=== PATIENT | female | born 1930 | race Asian ===

== ENCOUNTER 2016-11-13 21:48 | Inpatient (IN) | payer OTHER, MEDICAID ==
[~2016-11-13] VITALS: Ht 152.4 cm; Wt 66.0 kg
--- NOTE | 2016-11-13 22:25 | NUR ---
PT IN ED FOR NOT FEELING WELL PER FAMILY. PT RECENTLY TRAVELED BACK FROM [facility] YESTERDAY; FAMILY STS PT WAS SEEN BY DOCTOR IN [facility] AND WAS TOLD PT WAS DEHYDRATED AND NEEDED TO DRINK "MORE WATER AND GATORADE." PER FAMILY PT IS INTERMITTENTLY "DISORIENTED" X2 DAYS. PT IS ABLE TO FOLLOW COMMANDS,PT IS HARD OF HEARING PER FAMILY. PT WARM TO TOUCH, ICE PACKS GIVEN. PT FAMILY EDUCATED ON NO USE OF BLANKETS AND REMOVAL OF CLOTHING DUE TO FEVER. PT CONNECTED TO FULL . PT HAS NO COMPLAINT OF PAIN AT THIS TIME; FAMILY AT BEDSIDE
--- NOTE | 2016-11-13 22:41 | NUR ---
PT DIAPER CHANGED, LIGHT YELLOW URINE NOTED TO DIAPER.
--- NOTE | 2016-11-13 23:02 | NUR ---
BREATHING TX IN PROGRESS
[2016-11-13 23:12] LABS: BASOPHIL % 0.1 % (0-2); PLATELET COUNT 211 x10^3mcL (130-400); RED CELL DISTRIBUTION WIDTH 14.3 % (11.5-14.5)
[2016-11-13 23:22] LABS: CALCIUM 9.2 mg/dL (8.5-10.1); CARBON DIOXIDE 25.7 mmol/L (21-32); CHLORIDE SERUM 103 mmol/L (98-107); CREATININE SERUM 1.1 mg/dL (0.6-1.0); GLUCOSE SERUM 128 mg/dL (74-106); POTASSIUM SERUM 3.7 mmol/L (3.5-5.1); SODIUM SERUM 138 mmol/L (136-145)
[2016-11-13 23:26] LABS: ALBUMIN 3.6 g/dL (3.4-5.0); ALKALINE PHOSPHATASE 46 U/L (46-116); ALT/SGPT 20 U/L (14-59); AST/SGOT 21 U/L (15-37); BILIRUBIN TOTAL 0.3 mg/dL (0.20-1.00); CHOLESTEROL 135 mg/dL (<200); HDL CHOLESTEROL 51 mg/dL (40-60); TOTAL PROTEIN, SERUM 7.3 g/dL (6.4-8.2)
--- NOTE | 2016-11-13 23:30 | NUR ---
PT GIVEN BEDPAN TO OBTAIN URINE SAMPLE
--- NOTE | 2016-11-13 23:43 | NUR ---
MED REC UNABLE TO BE OBTAINED
--- NOTE | 2016-11-13 23:49 | NUR ---
PT UNABLE TO GIVE URINE SAMPLE AT THIS TIME
[2016-11-14] VITALS (9 sets, daily range): BP systolic 107–165; BP diastolic 45–64
--- NOTE | 2016-11-14 00:56 | NUR ---
ENDORSED ZITHROMAX TO INGA TO START ONCE 1ST ANTIBIOTIC IS FINISHED, INGA ANDRES VERBALIZED UNDERSTANDING.
[2016-11-14 01:03] LABS: T3 TOTAL 1.15 ng/mL
[2016-11-14 01:15] LABS: FREE T4 1.17 ng/dL (0.76-1.46); FREE THYROXINE INDEX 2.8 ug/dL (1.4-4.5); T4(THYROXINE) 7.8 ug/dL (4.7-13.3)
[2016-11-14 01:17] LABS: CHOLESTEROL/HDL RATIO 2.7
--- NOTE | 2016-11-14 01:17 | NUR ---
RECEIVED PT. PT AWAKE, ALERT AND ORINETED TO PERSON AND PLACE. REORIENTED TO TIME AND EVENT. DENIES PAIN AT THIS TIME. DEMONSTRATED HOW TO USE THE CALL LIGHT. BED IN LOWEST POSITION. SIDE RAILS UP X2. CALL LIGHT WITHIN REACH. DAUGHTERS AT BEDSIDE.
--- NOTE | 2016-11-14 01:17 | NUR ---
RECEIVED PATIENT FROM ED VIA GUERNEY, PATIENT A/O X 2 CONFUSED/FORGETFUL AT TIMES, HX OF DEMENTIA, DAUGHTERS AT BEDSIDE, TELE # 5 SR, IV ACCESS TO LAC WNL, NO C/O PAIN AT THIS TIME, PATIENT WITH AUDIBLE WHEEZING AND USE OF ACCESSORY MUSCLES WHEN TAKING BREATHS, ORIENTED PATIENT TO ROOM AND SURROUNDINGS, BED IN LOW POSITION, BED RAILS UP X 2, CALL LIGHT WITHIN REACH, WILL ENDORSE CARE TO PRIMARY NURSE INGA ANDRES
--- NOTE | 2016-11-14 07:30 | NUR ---
RECEIVED PATIENT AWAKE/ALERT, ORIENTED TO SELF/PERSON. DENIES PAIN, AUDIBLE WHEEZES/SOB NOTED. IV INTACT AND INFUSING WELL, ENCOURAGE PATIENT KEEP O2 ON. CALL LIGHT WITHIN REACH. REPOSITION UP FOR BREAKFAST. CONT TO MONITOR.
[2016-11-14 08:09] LABS: UA SPECIFIC GRAVITY 1.015 (1.005-1.035); microscopic required? YES; urine erythrocyte 2+ (NEGATIVE)
--- NOTE | 2016-11-14 08:36 | NUR ---
PATIENT RESTING IN BED HOB ELEVATED, DUE MEDS GIVEN. MILD SOB NOTED DURING TAKING HER PILLS. OFFERED PILL ONE AT THE TIME. CONT TO MONITOR.
--- NOTE | 2016-11-14 08:48 | NUR ---
PATIENT RESTING IN BED COMFORTABLE, DR. DESIR ROUND WITH MEDICAL TEAM DISCUSS POC WITH PATIENT WITH CN TRANSLATE IN ENRIQUEALOG.
[2016-11-14 08:49] LABS: BASOPHIL % 0.1 % (0-2); PLATELET COUNT 192 x10^3mcL (130-400)
[2016-11-14 08:58] LABS: RED CELL DISTRIBUTION WIDTH 14.7 % (11.5-14.5)
[2016-11-14 09:01] LABS: CALCIUM 8.5 mg/dL (8.5-10.1); CARBON DIOXIDE 26.2 mmol/L (21-32); CHLORIDE SERUM 103 mmol/L (98-107); GLUCOSE SERUM 182 mg/dL (74-106); MAGNESIUM 1.9 mg/dL (1.8-2.4); PHOSPHOROUS 2.4 mg/dL (2.5-4.9); POTASSIUM SERUM 3.6 mmol/L (3.5-5.1); SODIUM SERUM 137 mmol/L (136-145)
--- NOTE | 2016-11-14 09:21 | NUR ---
PATIENT RESTING IN BED, HOB ELEVATED, AUDIBLE WHEEZES NOTED WITH SOB. DUE MEDS GIVEN W/O SWALLOW DIFFICULTY. ZOSYN IVPB GIVEN. CONT TO MONITOR.
--- NOTE | 2016-11-14 11:00 | NUR ---
INCONT OF URINE BHAVANI CARE PROVIDED; REPOSITION UP IN BED, COOL MEASURES PROVIDED AND TYLENOL 650MG PO WITH WATER GIVEN FOR TEMP 102.0 CONT TO AMY.
--- NOTE | 2016-11-14 11:59 | NUR ---
PATIENT ASLEEP BUT AROUSABLE, RECHECK ORAL TEMP 100.2 AFTER TYLENOL GIVEN. CONT COOL MEASURES. DUE MEDS GIVEN. CONT TO MONITOR.
--- NOTE | 2016-11-14 15:12 | NUR ---
PATIENT RESTING IN BED AWAKE/ALERT IN BED WITH FAMILY MEMBERS AT BEDSIDE, UPDATE PATIENT'S CONDITION AND POC. PER DTR PATIENT SLEEP DURING DAY TIME BECAUSE PATIENT JUST GOT BACK FROM [facility]. PATIENT DID NOT ADJUST TO THE TIME DIFFERENCES. FAMILY ASSIST PATIENT WITH HER LATE LUNCH. NEEDS ANTICIPATED.
--- NOTE | 2016-11-14 16:57 | NUR ---
DC'D IV TO LAC LEAKING; RESTART NEW IV SITE TO RW# 22; CONT IVF ORDERED. COOL MEASURES PROVIDED FOR TEMP 100.2; FAMILY MEMBERS REMAIN AT BEDSIDE. BS 154 GIVE 3 UNITS HUMULIN R SQ. DUE MEDS GIVEN. CONT TO MONITOR.
--- NOTE | 2016-11-14 18:52 | NUR ---
BHAVANI CARE PROVIDED BY 2 STAFFS ASSIST; REPOSITION UP IN BED, KPAD TO BACK ORDERED; CALL LIGHT WITHIN REACH.
--- NOTE | 2016-11-14 19:52 | NUR ---
PATIENT RECEIVED WITH EYES CLOSED, EASILY AWAKEN WHEN NAME CALLED, AWAKEN CONFUSED AND DISORIENTED TO PLACE, THOUGHT SHE WAS AT HOME IN THE [facility], RE-ORIENTED AND INFORMED ABOUT PURPOSE OF HOSPITALIZATION AND HOSP. SPEECH CLEAR, [place]. AUDIBLE EXPIRATORY WHEEZING AND FINE CRACKLES BASES, FOUND ON 2LNC SAT 98%, MILD SOB ON EXERTION, OCC NON PRODUCTIVE COUGH. ON RT PROTOCOL. DENIES CHEST PAINS HR=79BPM, RHYTHM REGULAR, TELE#5 NSR. IV SITE NO SIGN OF INFILTRATION. K=PAD TO BACK, WITH GENERALIZED WEAKNESS, NEEDS ASSIST WITH ADL'S AND ACTIVITY, PATIENT INSTRUCTED AND ADVICED TO CALL NURS WHEN NEEDS ARISES, CALL LIGHT IN REACH. BED ALARM ON. INFORMED ABOUT POC THIS SHIFT. WILL CONTINUE TO MONITOR.
[2016-11-14] MEDS ORDERED: OXYBUTYNIN CHLO10 MG PO (20:27)
[2016-11-14] MEDS ORDERED: HYDROCHLOROTH12.5 M2 PO (20:27)
[2016-11-14] MEDS ORDERED: ULORIC40 M1 PO (20:27)
[2016-11-14] MEDS ORDERED: CALCIUM CITRATE1 TA1 PO (20:28)
[2016-11-14] MEDS ORDERED: COLACE100 MG PO (20:28)
[2016-11-14] MEDS ORDERED: CORE25 PO (20:29)
[2016-11-14] MEDS ORDERED: EVISTA60 MG PO (20:29)
[2016-11-14] MEDS ORDERED: ARICEPT10 MG PO (20:29)
[2016-11-14] MEDS ORDERED: NAMENDA10 M2 PO (20:30)
[2016-11-14] MEDS ORDERED: LOSARTAN POTAS100 M1 PO (20:30)
--- NOTE | 2016-11-14 21:30 | NUR ---
SCHEDULED MEDS ADMINISTERED, PATIENT PLACED IN A SITTING POSITION,INFORMED ABOUT EACH MEDS ACTIONS AND PURPOSES PRIOR. NO DIFF SWALLOWING DURING ADMINISTRATION.
--- NOTE | 2016-11-15 | NUR ---
ROUNDS MADE PATIEN WITH EYES CLOSED, EASILY AWAKEN WHEN NAME CALLED, NO RESP. DISTRESS, O2 MAINTAINED. SR ON THE MONITOR. TURNED AND REPOSITIONED THIS TIME. REMAINED DRY. WILL CONTINUE TO MONITOR.
--- NOTE | 2016-11-15 03:38 | NUR ---
ENDORSED CONTINUITY OF CARE TO FEDE-RN.
--- NOTE | 2016-11-15 03:40 | NUR ---
TOOK OVER THIS PATIENT FROM [facility]CK[facility] BARNES. SEEN RESTING WITH EYES CLOSE. EASILY TO AROUSE. NOTED WITH PRODUCTIVE COUGH, ABLE TO COUGH OUT LIGHT BROWISH SPUTUM. IVF NS TO RIGHT WRIST INFUSING AT 50ML/HR. DENIES PAIN. INCONTINENCE URINE. K PAD TO BACK INPLACED. SIDERAILS UP X2. CALL LIGHT REINSTRUCTED AND PLACED WITHIN EASY REACH.
[2016-11-15 06:15] VITALS: BP 143/56
--- NOTE | 2016-11-15 06:24 | NUR ---
FEBRILE 100.6, TYLENOL 650MG PO GIVEN. PARTIAL BEDBATH DONE. REPOSITIONED. IVF NS INFUSING WELL.
[2016-11-15 06:54] LABS: BASOPHIL % 0.4 % (0-2); PLATELET COUNT 172 x10^3mcL (130-400); RED CELL DISTRIBUTION WIDTH 14.4 % (11.5-14.5)
--- NOTE | 2016-11-15 07:25 | NUR ---
RECEIVED PATIENT ASLEEP AT THIS TIME, NO DISTRESS NOTED. IV INTACT AND INFUSING WELL. CALL LIGHT WITHIN REACH. CONT TO MONITOR.
[2016-11-15 07:58] LABS: rbc morphology (normal/abnorm) ABNORMAL (NORMAL)
[2016-11-15 07:59] LABS: ovalocyte/elliptocyte 2+
--- NOTE | 2016-11-15 08:00 | NUR ---
PATIENT WANT TO GET UP TO BATHROOM; BSC PROVIDED WILL ATTEMPT TO GET PATIENT UP; NOTED BLE WEAKNESS WHEN ATTEMPTED; WITH MAX ASSIST PATIENT ABLE TO PIVOT TO BSC; AM CARE PROVIDED. BHAVANI CARE PROVIDED. ASSIST PATIENT BACK TO BED. CALL LIGHT WITHIN REACH.
--- NOTE | 2016-11-15 08:30 | NUR ---
DR. DESIR ROUND WITH MEDICAL TEAM DISCUSS POC WITH PATIENT; PLAN DISCHARGE PATIENT TOMORROW.
--- NOTE | 2016-11-15 09:47 | NUR ---
PATIENT ASLEEP NO ACUTE DISTRESS NOTED, AROUSABLE, ALL DUE MEDS GIVEN. ZOSYN IVPB GIVEN. CALL LIGHT WITHIN REACH. CONT TO MONITOR.
[2016-11-15 09:54] VITALS: BP 99/40
--- NOTE | 2016-11-15 10:46 | NUR ---
INFORM DR. WATSON PATIENT IS MAX ASSIST X 2 STAFFS TO EGT OOB; PER DOCTOR WILL ORDER PT EVAL/TX.
--- NOTE | 2016-11-15 11:46 | NUR ---
PATIENT RESTING IN BED NO DISTRESS NOTED. REPOSITION UP IN BED DUE MEDS GIVEN. GIVE 3 UNITS HUMULIN R SQ FOR BS 153. INSTRUCT PATIENT TO SPIT PHLEGM IN THE CUP NEEDED FOR CULTURE. PATIENT VERBALIZE UNDERSTAND. NEEDS ANTICIPATED.
--- NOTE | 2016-11-15 13:31 | NUR ---
PATIENT REMAIN UP IN CHAIR AFTER PT TX; EATING HER LUNCH. GRAND DTR AT BEDSIDE. SEND SPUTUM TO LAB FOR CULTURE ORDERED. CONT TO MONITOR.
[2016-11-15 14:12] VITALS: BP 151/56
[2016-11-15 17:16] VITALS: BP 144/63
--- NOTE | 2016-11-15 17:26 | NUR ---
ASSIST PATIENT UP TO CHAIR FOR DINNER, MILD SOB AND AUDIBLE WHEEZES NOTED WITH EXERTION; DUE MEDS GIVEN; ZOSYN IVPB GIVEN. NEEDS ATTENDED. SET UP DINNER TRAY FOR PATIENT. CALL LIGHT WITHIN REACH.
--- NOTE | 2016-11-15 17:50 | NUR ---
TYLENOL 650MG PO GIVEN FOR TEMP 100.9; PATIENT REMAIN IN CHAIR EATING DINNER, CONT TO MONITOR.
--- NOTE | 2016-11-15 18:34 | NUR ---
INCONT OF STOOL BHAVANI CARE GIVEN; ASSIST PATIENT BACK TO BED; BLE ELEVATED. CALL LIGHT WITHIN REACH.
--- NOTE | 2016-11-15 19:50 | NUR ---
PT RESTING IN BED WITH EYES CLOSED. AROUSED WITH VERBAL AND TACTILE STIMULI. AOX2. TRIBE. VERBAL WITH CLEAR SPEECH. ON O2 2L VIA NC WITH NO S/S OF RESPIRATORY DISTRESS NOTED. LUNGS WITH FINE CRACKLES. RT PROTOCOL. ON TELE 5, NSR. DENIES ANY CHEST PAIN. ABDOMEN SOFT AND FLAT. BOWEL SOUNDS ACTIVE. SKIN WARM AND DRY. IV SALINE LOCK TO RIGHT WRIST PATENT AND INTACT. NO S/S OF INFECTION NOTED. NOTED WITH EDEMA TO BLE. BLE ELEVATED ON PILLOW. DENIES ANY PAIN AT THIS TIME. NO S/S OF DISTRESS NOTED. SIDE RAILS UP. BED ALARM ON. BED IN LOW POSITION. CALL LIGHT WITHIN REACH. WILL CONTINUE TO MONITOR.
[2016-11-15 21:48] VITALS: BP 118/53
--- NOTE | 2016-11-16 00:32 | NUR ---
NOTED PT ATTEMPTING TO GET OOB. PT STATES NEEDING TO USE THE BR. PT INCONTINENT OF BM. ASSISTED PT TO BSC. GOOD PERICARE RENDERED. ASSISTED BACK TO BED. NOTED WITH AUDIBLE WHEEZE. ON O2 2L VIA NC 99% WITH HOB ELEVATED. RT PROTOCOL. CALL LIGHT WITHIN REACH. WILL CONTINUE TO MONITOR.
--- NOTE | 2016-11-16 02:10 | NUR ---
PT RESTING IN BED WITH EYES CLOSED. BREATHING EQUAL AND UNLABORED. REMAINS ON O2 2L VIA NC. NO S/S OF RESPIRATORY DISTRESS NOTED. NO ADVERSE REACTIONS NOTED FROM IV ZOSYN. RESTING COMFORTABLY WITH RELAXED FACIAL FEATURES. CALL LIGHT WITHIN REACH. WILL CONTINUE TO MONITOR.
--- NOTE | 2016-11-16 05:54 | NUR ---
PT SLEPT INTERMITTENTLY THROUGHOUT THE NIGHT. AROUSED WITH VERBAL AND TACTILE STIMULI. VERBAL WITH CLEAR SPEECH. NOTED WITH FAINT AUDIBLE WHEEZE. REMAINS ON O2 2L VIA NC 98%. HOB ELEVATED. NO S/S OF RESPIRATORY DISTRESS NOTED. RT PROTOCOL. SIDE RAILS UP. BED ALARM ON. BED IN LOW POSITION. CALL LIGHT WITHIN REACH. WILL CONTINUE TO MONITOR.
[2016-11-16 06:00] VITALS: BP 127/58
[2016-11-16 07:20] LABS: BASOPHIL % 0.4 % (0-2); PLATELET COUNT 171 x10^3mcL (130-400)
[2016-11-16 07:21] LABS: RED CELL DISTRIBUTION WIDTH 14.9 % (11.5-14.5)
--- NOTE | 2016-11-16 07:28 | NUR ---
PATIENT RECEIVED AND SEEN. PATIENT APPEARS CALM. AAOX3, CHITIMACHA. PATIENT HAS NO SIGNS OF ACUTE DISTRESS. RESPIRATIONS EVEN AND UNLABORED. PATIENT HAS IV SALINE LOCKED CURRENTLY. SCDS IN PLACE. CALL LIGHT WITHIN REACH. WILL CONTINUE TO MONITOR.
--- NOTE | 2016-11-16 09:45 | NUR ---
PATIENT HAD SOME STRONG COUGHING AT THIS TIME. COUGHING WAS PRODUCTIVE OF SPUTUM. NOTIFIED RT TO EVALUATE PATIENT FOR TREATMENT.
[2016-11-16 10:11] VITALS: BP 127/52
[2016-11-16 11:29] LABS: RED BLOOD CELLS 3.51 M/mm3 (4.10-5.10)
[2016-11-16 11:35] LABS: IRON 46 ug/dL (50-170)
[2016-11-16 11:38] LABS: TOTAL IRON BINDING CAPACITY 158 ug/dL (250-450)
--- NOTE | 2016-11-16 12:00 | NUR ---
PATIENT CONTINUES TO REST IN BED. FAMILY AT BEDSIDE. NO SIGNS OF ACUTE DISTRESS ARE PRESENT. RESPIRATIONS EVEN AND UNLABORED. WILL CONTINUE TO MONITOR. CALL LIGHT WITHIN REACH.
[2016-11-16 14:10] VITALS: BP 136/77
--- NOTE | 2016-11-16 16:20 | NUR ---
PHYSICAL THERAPY DAILY NOTES CO-SIGN All documentation done by the Jewel Hole Cornerer for 11/16/16 has been reviewed. I agree with the documentation. Reviewed/Co-Signed by: Syed Gonzalez PT Documentation Done by:AUGUSTIN CONRAD GENERATOR OPERATOR PROGRESSING W/ FUNC MOB & GAIT ENDURANCE, PROGRESS ALFRED. CONT PT TWICE DAILY 5X/WK, ONCE DAILY 1X/WK X 1 WK PER POC; EMPHASIS ON ENERGY CONSERVATION TECH.
[2016-11-16 17:00] VITALS: BP 129/54
--- NOTE | 2016-11-16 19:23 | NUR ---
REPORT GIVEN TO NOC NURSE. AT THIS TIME THE PATIENT IS RESTING IN BED. NO SIGNS OF ACUTE DISRESS NOTED. RESPIRATIONS EVEN AND UNLABORED. IV IS PATENT AND WNL. SCDS IN PLACE.
--- NOTE | 2016-11-16 19:34 | NUR ---
SHIFT REASSESSMENT DONE.PATIENT ALERT AND ORIENTED X3,WIYOT,NEEDS ANTICIPATED.FINE CRACKLES/WHEEZING NOTED.RT PROTOCOL.GEN WEAKNESS.K PAD BACK.USES CANE AT HOME.ON PHYSICAL THERAPY.R WRIST HEPLOCK.TELE 5 SR.SKIN INTACT.BLE EDEMA NOTED.HEPARIN SQ.BSC,INCONTINENT AT TIMES.CALL LIGHT IN REACH.
--- NOTE | 2016-11-16 20:54 | NUR ---
PM MEDS GIVEN,DID NOT LIKE THE TASTE OF IRON MED/LIQUID.WATER OFFERED.SWALLOWS WELL.
[2016-11-16 22:15] VITALS: BP 135/56
--- NOTE | 2016-11-17 00:23 | NUR ---
PATIENT GIVEN COUGH SYRUP A WHILE AGO,WAS COUGHING AND ALSO PAIN PILL NORCO,K PAD TO BACK FOR BACK PAIN ORDERED.PATIENT REPOSITIONED WHEN NEEDED.GETS INCONTINENT OF URINE.KEEP CLEAN AND DRY.CALL LIGHT IN REACH.
--- NOTE | 2016-11-17 05:32 | NUR ---
PATIENT I AND O MEASURED.WILL ENDORSE TO NEXT SHIFT.
[2016-11-17 05:38] VITALS: BP 140/53
[2016-11-17 05:39] VITALS: BP 105/69
[2016-11-17 06:16] LABS: BASOPHIL % 0.4 % (0-2); PLATELET COUNT 180 x10^3mcL (130-400); RED CELL DISTRIBUTION WIDTH 14.5 % (11.5-14.5)
--- NOTE | 2016-11-17 07:15 | NUR ---
BEDSIDE REPORT RECEIVED FROM [facility] SHIFT NURSE AT THIS TIME. PATIENT AWAKE, ALERT, NO SIGNS OF DISTRESS NOTED. ALL SAFETY MEASURES IN PLACE, WILL CONTINUE TO MONITOR.
--- NOTE | 2016-11-17 08:00 | NUR ---
PATIENT AWAKE, ALERT, EATING BREAKFAST, ORIENTED TO PERSON ONLY, PATIENT STATES "FROM THE WAY THAT IT LOOKS OUTSIDE, [place] REORIENTED NEEDED, PATIENT STATES WE ARE IN THE MONTH OF SEPTEMBER, 2027, REORIENTED NEEDED. DENIES CHEST PAIN, NO DIZZINESS, TELE# 5, HR 79. SCD'S IN PLACE, ON ROOM AIR. IV TO RIGHT WRIST SALINE LOCKED, WNL. CALM AND COOPERATIVE WITH CARE, ALL SAFETY MEASURES IN PLACE, WILL CONTINUE TO MONITOR.
[2016-11-17 08:12] LABS: CALCIUM 8.2 mg/dL (8.5-10.1); CARBON DIOXIDE 24.8 mmol/L (21-32); CHLORIDE SERUM 108 mmol/L (98-107); GLUCOSE SERUM 81 mg/dL (74-106); PHOSPHOROUS 2.5 mg/dL (2.5-4.9); POTASSIUM SERUM 3.6 mmol/L (3.5-5.1); SODIUM SERUM 140 mmol/L (136-145)
[2016-11-17 08:24] LABS: rbc morphology (normal/abnorm) ABNORMAL (NORMAL)
[2016-11-17 08:25] VITALS: BP 105/69
--- NOTE | 2016-11-17 09:40 | NUR ---
ROUNDS MADE AT THIS TIME WITH MD TEAM, CHARGE NURSE BRIAN, AND DR FISHER. PATIENT AWAKE, ALERT, NO SIGNS OF DISTRESS NOTED. PATIENT IS TO BE DISCHARGED HOME TODAY, FWW AT BEDSIDE, PATIENT TO RECEIVE HOME HEALTH FOR CONTINUED PHYSICAL THERAPY. WILL CONTINUE TO MONITOR.
--- NOTE | 2016-11-17 12:10 | NUR ---
PATIENT AWAKE, ALERT AND ORIENTED X2. NO SIGNS OF DISTRESS. ALL SAFETY PRECAUTIONS IN PLACE. SIDE RAIL ARE UP AND CALL LIGHT IS WITHIN REACH. WILL CONTINUE TO MONITOR.
[2016-11-17 13:41] VITALS: BP 159/61
[2016-11-17 14:50] VITALS: BP 105/69
[2016-11-17 17:03] VITALS: BP 125/61
[2016-11-17] MEDS ORDERED: LEVAQUIN750 MG PO (18:03)
[2016-11-17] MEDS ORDERED: LAC PO (18:04)
--- NOTE | 2016-11-17 18:40 | NUR ---
PATIENT AWAKE AND LAYING IN BED. NOTIFIED PATIENT THAT DISCHARGE ORDERS WERE BEING PROCESSED. NO COMPLAINTS OF PAIN OR DISCOMFORT. ALL SAFETY PRECAUTIONS ARE IN PLACE. CALL LIGHT IS IN REACH, AND BED RAILS ARE UP. WILL CONTINUE TO MONITOR.
--- NOTE | 2016-11-17 19:05 | NUR ---
BEDSIDE REPORT GIVEN TO NOC SHIFT RN JEANETTE, WILL ENDORSE CARE.
--- NOTE | 2016-11-17 19:06 | NUR ---
PATIENT FOR DC TONIGHT,DENTAL MANAGER STILL WORKING ON HER DC PAPERS.PATIENT ASLLEP,NOT DISTURBED AT THIS TIME.
--- NOTE | 2016-11-17 20:12 | NUR ---
PHYSICAL THERAPY DAILY NOTES CO-SIGN All documentation done by the Platform Inspector for 11/17/16 has been reviewed. I agree with the documentation. Reviewed/Co-Signed by: Diane Farfan DPT Documentation Done by: Magen Hicks PTA Patient syeda tx well, progressing towards goals, FWW delivered and fitted to patient. Cont with PT POC as syeda/safe.
--- NOTE | 2016-11-17 20:29 | NUR ---
PATIENT FAMILY HERE PICKING HER UP TO GO HOME.ALL PAPER WORKS SIGNED.RX GIVEN.ARMBAND REMOVED,TELE 5.WILL RETURN TO [facility],SUBMARINE ADVISORY TEAM WATCH OFFICER
--- NOTE | 2016-11-17 20:38 | NUR ---
TO DC NOW VIA WHEELCHAIR,DEMARIO ZHAO WHEELING HER DOWN,IN STABLE CONDITION.
== END 2016-11-17 20:46 | disposition home health service (06) | DRG 177 ==
LOC: ED 21:48 → DU 23:53
PROVIDERS: Emergency Medicine; ADMIT Family Medicine
DX: J69.0 Pneumonitis due to inhalation of food and vomit (principal); N17.0 Acute kidney failure with tubular necrosis; D68.69 Other thrombophilia; N39.0 Urinary tract infection, site not specified; I10 Essential (primary) hypertension; E11.65 Type 2 diabetes mellitus with hyperglycemia; E11.59 Type 2 diabetes mellitus with other circulatory complications; E83.39 Other disorders of phosphorus metabolism; K21.9 Gastro-esophageal reflux disease without esophagitis; D63.8 Anemia in other chronic diseases classified elsewhere; Z68.28 Body mass index [BMI] 28.0-28.9, adult
CPT/HCPCS: 82962; 83880; 84439; 87804; 97110-GP; 97116-GP; 97530-GP; J0456; J0696; J1644; J2543; J3490; J7030; J7050; J7613; J7620; Q0092